=== PATIENT | female | born 1985 | race Caucasian/White ===

== ENCOUNTER 2017-02-20 20:56 | Emergency (ER) | payer OTHER ==
[~2017-02-20] VITALS: Ht 167.6 cm; Wt 71.0 kg
[2017-02-20 21:27] VITALS: Ht 167.6 cm; Wt 71.0 kg
[2017-02-20] MEDS ORDERED: SOD CHLORIDE 0.9% 1,000 ML IV ONE (22:00)
[2017-02-20] MEDS: METOCLOPRAMIDE 10 MG INJ IV ONE ×2 (22:17→22:26)
[2017-02-20 22:40] LABS: ABNORMAL IP MESSAGE 1; BASOPHILS % 0.2 % (0.0-2.0); HEMATOCRIT 32.1 % (37.0-47.0); HEMOGLOBIN 11.4 g/dl (12.0-16.0); LYMPHOCYTES # 0.5 10^3/ul (0.8-2.9); LYMPHOCYTES % 4.8 % (15.0-51.0); MEAN CORPUSCULAR HEMOGLOBIN 29.8 pg (29.0-33.0); MEAN CORPUSCULAR HGB CONC 35.5 g/dl (32.0-37.0); MEAN PLATELET VOLUME 8.5 fl (7.4-10.4); MONOCYTE # 0.4 10^3/ul (0.3-0.9); MONOCYTES % 4.2 % (0.0-11.0); NEUTROPHIL # 8.8 10^3/ul (1.6-7.5); NEUTROPHILS % 89.8 % (39.0-77.0); PLATELET COUNT 229 10^3/UL (140-415); RED BLOOD COUNT 3.82 10^6/ul (4.20-5.40); RED CELL DISTRIBUTION WIDTH 13.2 % (11.5-14.5); WHITE BLOOD COUNT 9.8 10^3/ul (4.8-10.8)
[2017-02-20 22:49] LABS: POSITIVE DIFF @See below
[2017-02-20 22:57] LABS: CALCIUM 8.3 mg/dl (8.4-10.2); CREATININE 0.64 mg/dl (0.44-1.00); POTASSIUM 3.1 mmol/L (3.5-5.1)
[2017-02-20 22:59] LABS: ADD UMIC YES; UR ASCORBIC ACID NEGATIVE (NEGATIVE); UR BACTERIA MODERATE /HPF (NONE SEEN); UR BILIRUBIN (Dip) NEGATIVE (NEGATIVE); UR BLOOD (Dip) NEGATIVE (NEGATIVE); UR CLARITY SLIGHTLY CLOUDY (CLEAR); UR COLOR YELLOW (YELLOW); UR GLUCOSE (Dip) NEGATIVE (NEGATIVE); UR KETONES (Dip) 2+ mg/dL (NEGATIVE); UR LEUKOCYTE ESTERASE (Dip) TRACE Leu/ul (NEGATIVE); UR NITRITE (Dip) NEGATIVE (NEGATIVE); UR RBC 2 /HPF (0-5); UR SPECIFIC GRAVITY (Dip) 1.013 (1.003-1.030); UR SQUAMOUS EPITHELIAL CELL FEW /HPF (FEW); UR TOTAL PROTEIN (Dip) NEGATIVE (NEGATIVE); UR UROBILINOGEN (Dip) NEGATIVE (NEGATIVE)
[2017-02-20] MEDS ORDERED: ACETAMINOPHEN 325 MG TAB PO ONE (23:00)
[2017-02-20] MEDS ORDERED: POTASSIUM CHLORIDE (SR) 20 MEQ TAB PO STA (23:11)
--- NOTE | 2017-02-20 23:22 | ERD ---
ER Documentation Chief Complaint Chief Complaint 28 WEEKS PREG + FEVERS AT HOME WITH V/D SINCE LAST NIGHT, LAST TYLENOL 1630 HPI 31-year-old female is currently 27 weeks , presents with the chief complaints of vomiting without nausea and diarrhea 24 hours. Also reports fever between 101-102F that has been moderately controlled with Tylenol. Denies discharge, bleeding, change in movement, abdominal pain, nausea, previous complications in , dysuria, urinary frequency, or hematuria. No other complaints and describes no other associated manifestations. ROS All systems reviewed and are negative except as per history of present illness. Medications Home Meds Active Scripts Metoclopramide* (Reglan*) 10 Mg Tablet, 10 MG PO Q6 Y for NAUSEA AND/OR VOMITING , #10 TAB Prov:ROSALBA MARIN PA-C 02/20/17 Allergies Allergies: Coded Allergies: No Known Allergy (Unverified , 02/20/17) PMhx/Soc Medical and Surgical Hx: pt denies Surgical Hx History of Surgery: Yes (face) Anesthesia Reaction: No Hx Neurological Disorder: No Hx Respiratory Disorders: No Hx Cardiac Disorders: No Hx Psychiatric Problems: No Hx Miscellaneous Medical Probl: No Hx Alcohol Use: No Hx Substance Use: No Hx Tobacco Use: No Smoking Status: Never smoker Physical Exam Vitals Vital Signs Date Time Temp Pulse Resp B/P Pulse Ox O2 Delivery O2 Flow Rate FiO2 02/20/17 21:27 100.4 135 20 119/56 100 Physical Exam Const: Healthy-appearing. Well-nourished. Well-developed. No acute distress. Abd: Fundal height WNL. Soft, non tender, No guarding, masses. Normal bowel sounds. No McBurney's point tenderness. Head: Normocephalic, Atraumatic. Eyes: Non-injected; No scleral erythema, discharge or foreign body. EOMI and HEDY bilaterally. Ears: Normal External Ears, EACs clear, TM normal bilaterally without erythema. Nose: Normal nose without discharge, septal deviation, or sinus tenderness. Oral: No oral edema visualized. Mucous membranes moist and pink. Neck: No cervical lymphadenopathy, masses or goiter palpated. Trachea midline. Supple ~ No meningismus. Pulm: Good air movement in upper and lower respiratory tracts. No dyspnea, stridor, tripoding or drooling. Clear to auscultation bilaterally. Cardio: Regular rate and rhythm; No murmurs, gallops or rubs auscultated. No JVD grossly observed. Radial and posterior tibial pulses 2+ bilaterally. No cyanosis. Capillary refill less than 2 seconds. MS: Normal motor strength, normal tone with gross examination. Skin: No petechiae or rashes. No ulcer, induration, jaundice. Good turgor. Back: No midline, flank or CVA tenderness. Ext: No cyanosis, edema or palpable cord. Normal movement of all extremities grossly observed. Neur: Awake, alert and oriented x3. Neurovascularly intact bilaterally. Psych: Normal Mood and Affect. Result Diagram: 02/20/17221802/20/172199 Results 24 hrs Laboratory Tests Test 02/20/17 22:00 02/20/17 22:19 Urine Color YELLOW Urine Clarity SLIGHTLY CLOUDY Urine pH 6.0 Urine Specific [place] 1.013 Urine Ketones 2+mg/dL Urine Nitrite NEGATIVEmg/dL Urine Bilirubin NEGATIVEmg/dL Urine Urobilinogen NEGATIVEmg/dL Urine Leukocyte Esterase TRACELeu/ul Urine Microscopic RBC 2/HPF Urine Microscopic WBC 6/HPF Urine Squamous Epithelial Cells FEW/HPF Urine Bacteria MODERATE/HPF Urine Hemoglobin NEGATIVEmg/dL Urine Glucose NEGATIVEmg/dL Urine Total Protein NEGATIVEmg/dl Sodium Level 132mmol/L Potassium Level 3.1mmol/L Chloride Level 102mmol/L Carbon Dioxide Level 22mmol/L Anion Gap 11 Blood Urea Nitrogen 4mg/dl Creatinine 0.64mg/dl Glucose Level 99mg/dl Calcium Level 8.3mg/dl White Blood Count 9.810^3/ul Red Blood Count 3.8210^6/ul Hemoglobin 11.4g/dl Hematocrit 32.1% Mean Corpuscular Volume 84.0fl Mean Corpuscular Hemoglobin 29.8pg Mean Corpuscular Hemoglobin Concent 35.5g/dl Red Cell Distribution Width 13.2% Platelet Count 29244^3/UL Mean Platelet Volume 8.5fl Neutrophils % 89.8% Lymphocytes % 4.8% Monocytes % 4.2% Eosinophils % 0.0% Basophils % 0.2% Nucleated Red Blood Cells % 0.0/100WBC Neutrophils # 8.810^3/ul Lymphocytes # 0.510^3/ul Monocytes # 0.410^3/ul Eosinophils # 0.010^3/ul Basophils # 0.010^3/ul Nucleated Red Blood Cells # 0.010^3/ul Current Medications Medications (Trade) Dose Ordered Sig/Colin Route PRN Reason Start Time Stop Time Status Last Admin Dose Admin Sodium Chloride (NS) 1,000 ml @ 1,000 mls/hr Q1H ONCE IV 02/20/17 22:00 02/20/17 22:59 DC 02/20/17 22:17 Metoclopramide HCl (Reglan) 10 mg ONCE ONCE IV 02/20/17 22:00 02/20/17 22:01 DC Acetaminophen (Tylenol Tab) 650 mg ONCE ONCE PO 02/20/17 23:00 02/20/17 23:01 DC 02/20/17 22:47 Potassium Chloride (Klor-Con 20) 40 meq ONCE STAT PO 02/20/17 23:11 02/20/17 23:13 DC 02/20/17 23:31 Procedures/MDM Otherwise healthy 31-year-old female who is currently 27 weeks presents with a chief complaint of diarrhea, vomiting without nausea, and fever 24 hours. Moderate relief of fever with Tylenol. No other complaints. Physical examination unremarkable. CMP: Sodium 132, potassium 3.1, calcium 8.3. CBC: Neutrophils 89.8, lymphocytes 4.8, hemoglobin 11.4. Urinalysis: Trace leuks. 6 WBC. 2+ ketones. I reviewed the results of my attending Dr. Manley who has suggested urine culture , 40 mg potassium p.o., 1 L saline. Has suggested no treatment for trace leuks. 40 mg potassium given p.o. 1 L normal saline given. Urine culture ordered. At this time, I have little suspicion for , placenta previa, infection, blood vessel rupture, or PPROM. The current most likely diagnosis is gastroenteritis. I have spoke to my attending who agrees with the assessment and plan. I have spoke with the patient regarding their condition and future management. They have verbally responded that they understand their status and treatment plan. The patients vitals are stable, and their current condition is appropriate for discharge. The patient will be given discharge instructions with return precautions. Departure Diagnosis: Primary Impression: Gastroenteritis Condition: Stable Additional Instructions: Follow-up with [facility] in the next 2 days. Results have been given to you. Return to emergency department if symptoms worsen or change. Take medications as prescribed. If you have any questions regarding the medications ask us before you leave or consult the pharmacist. ROSALBA MARIN PA-C Feb 20, 2017 23:22
[2017-02-20] MEDS ORDERED: METO10TA92 PO (23:23)
== END 2017-02-20 23:50 | disposition home or self-care (01) ==
LOC: FTE 20:56
DX: O99.612 Diseases of the digestive system complicating pregnancy, second trimester (principal); K52.9 Noninfective gastroenteritis and colitis, unspecified; Z3A.27 27 weeks gestation of pregnancy
CPT/HCPCS: 36415; 80048; 81001; 85025; 87400; 87880; 99284; J2765; J7030

== ENCOUNTER 2017-05-02 23:40 | Inpatient (IN) | END 2017-05-05 13:15 | disposition home or self-care (01) | DRG 775 ==

== ENCOUNTER 2018-08-24 10:45 | Emergency (ER) | payer OTHER ==
[~2018-08-24] VITALS: Ht 167.6 cm; Wt 58.8 kg
[~2018-08-24 10:45] MED LIST: CALC600T5 PO; FERR134T PO; PREN-19 PO; VALA500T PO
[2018-08-24 10:55] VITALS: PULSE 90; RESP 18; Ht 167.6 cm; Wt 58.8 kg
--- NOTE | 2018-08-24 11:50 | ERD ---
ER Documentation Chief Complaint Chief Complaint bee sting, painful right 3rd finger x3 days HPI 33-year-old female presenting with a bee sting to the right third digit. This happened 4 days ago. Patient states that there is mild irritation and swelling noted to the finger. Is not itchy. She denies any medications on the area. Denies other medical problems. NKDA. Surgical history denies. Social history denies ROS All systems reviewed and are negative except as per history of present illness. Medications Home Meds Reported Medications Calcium Carbonate (CALCIUM) 600 Mg Tablet, 600 MG PO DAILY, TAB 05/02/17 Ferrous Sulfate (Iron) 134 Mg Tablet, 134 MG PO DAILY, TAB 05/02/17 Vit #76/Iron,Carb/FA (Prenatabs Rx Tablet) 1 Each Tablet, 1 EACH PO DAILY, TAB 05/02/17 valAcyclovir Hcl* (valACYclovir Hcl*) 500 Mg Tablet, 500 MG PO DAILY, TAB 05/02/17 Allergies Allergies: Coded Allergies: No Known Allergy (Unverified , 05/02/17) PMhx/Soc History of Surgery: Yes (face) Anesthesia Reaction: No Hx Neurological Disorder: No Hx Respiratory Disorders: No Hx Cardiac Disorders: No Hx Psychiatric Problems: No Hx Miscellaneous Medical Probl: No Hx Alcohol Use: No Hx Substance Use: No Hx Tobacco Use: No FmHx Family History: No diabetes, No coronary disease, No other Physical Exam Vitals Vital Signs Date Temp Pulse Resp B/P (MAP) Pulse Ox O2 O2 Flow FiO2 Time Delivery Rate 08/24/18 90 18 98 10:55 Physical Exam GENERAL: The patient is well-appearing, well-nourished, in no acute distress CHEST: Clear to auscultation bilaterally. There are no rales, wheezes or rhonchi. HEART: Regular rate and rhythm. No murmurs, clicks, rubs or gallops. NEUROLOGIC: Alert and oriented. Cranial nerves II through XII intact. Motor strength in all 4 extremities with 5 out of 5 strength. Sensation grossly intact. Normal speech and gait. SKIN: Swelling noted to the right third digit. One small area approximately 1 mm in size erythema noted. No fluctuance or purulence. Procedures/MDM MDM: 33 yr old female complaining of bee sting to finger. I have low suspicion for cellulitic reaction. I have low suspicion for retained foreign body. Patient is discharged with supportive medications and told to follow-up with primary care within 1 to 2 days for close evaluation. All questions answered at discharge Departure Diagnosis: Primary Impression: Bee sting Condition: Stable Patient Instructions: Insect Bites and Stings Referrals: [facility] YOU HAVE RECEIVED A MEDICAL SCREENING EXAM AND THE RESULTS INDICATE THAT YOU DO NOT HAVE A CONDITION THAT REQUIRES URGENT TREATMENT IN THE EMERGENCY DEPARTMENT. FURTHER EVALUATION AND TREATMENT OF YOUR CONDITION CAN WAIT UNTIL YOU ARE SEEN IN YOUR DOCTORS OFFICE WITHIN THE NEXT 1-2 DAYS. IT IS YOUR RESPONSIBILITY TO MAKE AN APPOINTMENT FOR FOLOW-UP CARE. IF YOU HAVE A PRIMARY DOCTOR --you should call your primary doctor and schedule an appointment IF YOU DO NOT HAVE A PRIMARY DOCTOR YOU CAN CALL OUR PHYSICIAN REFERRAL HOTLINE AT IF YOU CAN NOT AFFORD TO SEE A PHYSICIAN YOU CAN CHOSE FROM THE FOLLOWING [facility] [address] [facility] [address] [employer] [facility] [facility] [address] [facility] [address] [facility] [address] [facility]. [address] Additional Instructions: FOLLOW UP WITH YOUR PRIMARY CARE PHYSICIAN TOMORROW.Return to this facility if you are not improving as expected. NABOR GONZALEZ PA-C Aug 24, 2018 11:49
== END 2018-08-24 12:15 | disposition home or self-care (01) ==
LOC: FTE 10:45
DX: S60.462A Insect bite (nonvenomous) of right middle finger, initial encounter (principal); W57.XXXA Bitten or stung by nonvenomous insect and other nonvenomous arthropods, initial encounter; Y92.9 Unspecified place or not applicable
CPT/HCPCS: 99282